=== PATIENT | male | born 1955 | race Caucasian/White ===

== ENCOUNTER 2025-07-24 17:10 | Emergency (ER) | payer OTHER, SELFPAY ==
[2025-07-24 17:18] VITALS: BP 158/89
[2025-07-24 17:40] LABS: Hematocrit 43.9 % (39.0-52.0); Hemoglobin 14.5 g/dL (13.0-18.0); Mean Corp Hgb Conc. 33.0 g/dL (33.0-37.0); Mean Corpuscular Volume 83.8 fL (80.0-94.0); Nucleated Red Blood Cells % 0 % (-); Platelet Count 246 10^3/uL (130-400); Red Cell Dist. Width 13.9 % (11.5-14.5)
[2025-07-24 17:55] LABS: ALT (SGPT) 36 U/L (0-50); AST (SGOT) 30 U/L (17-59); Albumin 3.8 g/dl (3.5-5.0); Alkaline Phosphatase 155 U/L (38-126); Blood Urea Nitrogen 22 mg/dl (9-20); Calcium 9.0 mg/dl (8.4-10.2); Carbon Dioxide 31 mmol/L (22-30); Chloride 105 mmol/L (98-107); Glucose 163 mg/dl (70-99); Potassium 4.1 mmol/L (3.5-5.1); Sodium 138 mmol/L (135-145); Total Protein 6.7 g/dl (6.3-8.2); eGFR > 60.00
--- NOTE | 2025-07-24 19:22 | ED.GENMED ---
History of Present Illness
General
Chief Complaint: Swelling
Source: patient
Exam Limitations: none
Time Seen by Provider: 07/24/25 19:13
History of Present Illness
History of Present Illness:
70yoM with a history of hypertension, hyperlipidemia, and type 2 diabetes presenting with his for evaluation of right great toe pain and redness. He started with soreness in the right toe this morning. Pain has been gradually worsening
throughout the day and pain is now severe with any sort of pressure. He denies any trauma to the area or wounds. He took a dose of his 's gabapentin without any relief. He is otherwise asymptomatic and denies any fevers or chills. He was
prediabetic for many years and was recently diagnosed with type 2 diabetes about 2 weeks ago after his HbA1c increased to 6.8. His metformin dose was increased by his PCP.
Phy Exam
General Physical Exam
General Presentation: well appearing and no apparent distress
General Skin: warm and dry
General Habitus: normal
General Mental: alert
ENT Exam
ENT Exam: normocephalic
Pulmonary Exam
Pulmonary Exam: no respiratory distress
Neurological Exam
Neurological Exam: alert
Armando Coma Scale
Eye Opening: Spontaneous
Verbal Response: Oriented
Motor Response: Obeys Commands
GCS Total Score: 15
Skin Exam
Skin Exam: warm/dry and other (R great toe: Erythema noted to proximal great toe with hyperalgesia and significant pain to light touch. No wounds, purulence, or signs of ingrown toenail. No crepitus. 2+ DP pulse.)
Psychiatric Exam
Psychiatric Exam: normal mood/affect
Scores
Heart Failure Risk
Heart Failure Risk Score: Not Applicable
Course
Orders/Labs/Results
Orders:
Orders
07/24/25 17:29
CMP [Comprehensive Metabolic Panel] Urgent
Complete Blood Count/With Diff Urgent
Uric Acid Urgent
Comment: ADD ON
07/24/25 19:22
CR Toe(s) Min 2 Vw Right Urgent
Comment:
Reason For Exam: atraumatic R great toe pain, redness
07/24/25 19:26
Add On- LAB Urgent
Tests Added?: uric acid
Colchicine 1.2 mg PO NOW STA
07/24/25 19:27
Oxycodone/Acetaminophen [Percocet 5/325] 1 tablet PO NOW STA
07/24/25 19:31
Ice Pack-Treatment DIRECTED
Location: R great toe
07/24/25 21:08
Colchicine 0.6 mg PO NOW STA
Abnormal Lab Results
07/24/25
17:29
Absolute Monos (auto) 1.0 H 10^3/uL
(0.1-0.6)
Lymphocytes % 20.1 L %
(20.5-51.1)
Monocytes % 10.7 H %
(1.7-9.3)
Carbon Dioxide 31 H mmol/L
(22-30)
BUN 22 H mg/dl
(9-20)
Glucose 163 H mg/dl
(70-99)
Alkaline Phosphatase 155 H U/L
(38-126)
07/24/25 17:29
07/24/25 17:29
Vital Signs
Initial and Last Documented VS:
Initial Vital Signs
Temp Pulse Resp BP Pulse Ox
97.8 F 73 20 158/89 97
07/24/25 17:18 07/24/25 17:18 07/24/25 17:18 07/24/25 17:18 07/24/25 17:18
Last Documented Vital Signs
Temp Pulse Resp BP Pulse Ox
97.8 F 73 20 158/89 97
07/24/25 17:18 07/24/25 17:18 07/24/25 17:18 07/24/25 17:18 07/24/25 19:55
MDM/Problems Addressed
Differential Diagnosis Includes:
70yoM here with atraumatic R great toe pain and redness that began this AM. Pain is severe. Recently diagnosed with diabetes a few weeks ago. No f/c or other systemic symptoms. VSS. R toe is erythematous with significant tenderness to light touch.
No wounds noted. RLE is neurovascularly intact. Differential diagnosis includes: gout, cellulitis, doubt septic arthritis
Labs obtained in triage and white count within normal limits. Glucose 163. Toe x-rays added which shows soft tissue swelling but are otherwise normal. No evidence of osteomyelitis or soft tissue gas. Suspect gout given abrupt onset of symptoms
and location. Uric acid added which is normal although this can be normal during acute gout attacks. He was given colchicine and Percocet in the ED with improvement in pain. Patient stable for discharge. Prescriptions provided for both
colchicine and Percocet. He was advised to follow-up closely with his PCP. Strict ED return precautions reviewed including spreading redness, fevers, or chills. Patient andn in agreement with plan.
*Pulse Oximetry
SaO2: 97
Oxygen Mode of Delivery: Room air
Patient hypoxic: no
*Critical Care Note
Total Time (30-74mins, 75-104mins- exclusive of procedures): Not Applicable
ED Attending Note
-
Portions of this chart may have been created with voice recognition software.� Occasional wrong word or��sound alike� substitutions may have occurred due to the inherent limitations of voice recognition software.
Discharge Plan
Departure
Patient Disposition: Home (Routine Discharge)
Date of Disposition: 07/24/25
Time of Disposition: 21:12
Patient with high blood pressure during this ER visit?: Yes
Discharge Problem:
Acute gout involving toe of right foot
Instructions: Low-purine diet, Gout - ED (DC)
Prescriptions:
New
colchicine 0.6 mg tablet
0.6 mg PO BID Qty: 10 0RF
Rx Instructions:
Take 1-2x daily until symptoms resolve.
oxycodone 5 mg tablet
5 mg PO Q6H PRN (Reason: Pain) Qty: 8 0RF
Referrals:
Jordon Mcelroy MD [Family Provider, Family Practice]
Activity Restrictions/Additional Instructions:
Take colchicine 1-2 times daily until symptoms resolved. Take oxycodone only as needed for severe breakthrough pain.
Please follow-up with your family doctor within the next 48 hours. Return to the ER with any new or worsening symptoms including spreading redness, fevers, or chills.
Interventions
Interventions:
*Risk Screen - Suicide Last Done: 07/24/25 17:18
*General Assessment Last Done: 07/24/25 17:18
*Neglect/Abuse Screening Last Done: 07/24/25 17:18
*ED COVID-19 Vaccine History Last Done: 07/24/25 17:18
*ED Influenza Vaccine History Last Done: 07/24/25 17:18
[facility] Fall Risk Assessment Tool Last Done: 07/24/25 19:45
*Nursing Disposition Last Done: 07/24/25 21:32
ED- Cardiac Assessment Last Done: 07/24/25 19:55
ED- Pulmonary Assessment Last Done: 07/24/25 19:55
ED-Skin Assessment Last Done: 07/24/25 19:49
Discharge Date and Time
Discharge Date/Time: 07/24/25 21:34
Print Language: TANZANIAN
[2025-07-24] MEDS: PERCOCET 5/325 1 TABLET PO (19:42)
[2025-07-24] MEDS: COLCHICINE 1.2 MG PO (19:43)
[2025-07-24 19:45] VITALS: BMI 38.4
[2025-07-24 20:02] LABS: Uric Acid 6.1 mg/dl (3.5-8.5)
[2025-07-24] MEDS: COLCHICINE 0.6 MG PO (21:20)
== END 2025-07-24 21:34 | disposition home or self-care (01) ==
LOC: EMR 17:10
PROVIDERS: Emergency Medicine; EMERGENCY PHYSICIAN Emergency Medicine; FAMILY PHYSICIAN Family Medicine
DX: M10.9 Gout, unspecified (principal); E11.9 Type 2 diabetes mellitus without complications; I10 Essential (primary) hypertension; E78.5 Hyperlipidemia, unspecified; Z79.84 Long term (current) use of oral hypoglycemic drugs
CPT/HCPCS: 99284; 73660; 80053; 84550; 85025